=== PATIENT | female | born 1980 | race Caucasian/White ===

== ENCOUNTER 2016-11-05 15:47 | Emergency (ER) | payer MEDICAID ==
[~2016-11-05 15:47] MED LIST: ADVIL200 M1 PO; BACTRIM DS1 TA1 PO; IBUPROFEN800 MG PO; MINOCIN100 MG PO; MULTIVITAMIN PO; OMEGA 31 CAP PO; PRENATAL1 EACH PO; PRENATAL1 TAB; TRAMADOL HCL50 MG PO; VISTARIL25 MG; VITAMIN C100 MG
[2016-11-05] MEDS ORDERED: [UNRECOGNIZED DRUG - REMARK] (16:03)
[2016-11-05 16:35] LABS: URINE BILIRUBIN NEGATIVE (NEG); URINE BLOOD MODERATE (NEG); URINE GLUCOSE (UA) NEGATIVE (NEG); URINE KETONE SMALL (NEG); URINE LEUKOCYTE ESTERASE POSITIVE (NEG); URINE NITRITE NEGATIVE (NEG); URINE PROTEIN SMALL (NEG)
[2016-11-05 16:37] LABS: URINE APPEARANCE HAZY; URINE COLOR YELLOW
[2016-11-05 16:49] LABS: URINE MUCUS 2+; URINE RBC 0 /[HPF] (0-5); URINE WBC 0-2 /[HPF] (0-5)
== END 2016-11-05 17:21 ==
LOC: EDMED 15:47
PROVIDERS: Emergency Medicine
DX: O23.592 Infection of other part of genital tract in pregnancy, second trimester (principal); N76.0 Acute vaginitis; Z3A.19 19 weeks gestation of pregnancy